=== PATIENT | male | born 1960 | race Caucasian/White ===

== ENCOUNTER 2018-09-22 16:47 | Inpatient (IN) | payer OTHER ==
[2018-09-22] MEDS ORDERED: Ondansetron PF 4 MG/2 ML Vial ONE (17:20)
[2018-09-22 17:25] LABS: #Lymphocytes 0.4 thou/uL (1.20-3.40); #Monocytes 0.5 thou/uL (0.11-0.59); #Neutrophils 13.2 thou/uL (1.40-6.50); %Basophils 0.1 % (0.0-1.0); %Eosinophils 0.3 % (0.0-10.0); %Monocytes 3.5 % (0.0-10.0); %Neutrophils 93.1 % (42.0-75.0); Mean Corpuscular HGB CONC 34.6 g/dL (32.0-36.0); Mean Corpuscular Hemoglobin 31.5 pg (27.0-31.0); Mean Corpuscular Volume 90.9 fL (78.0-98.0); Mean Platelet Volume 6.7 fL (7.4-10.4); Platelet Count 276 thou/uL (130-400); RBC Distribution Width 12.2 % (11.5-14.5); Red Blood Cell (RBC) Count 5.07 mill/uL (4.70-6.10); White Blood Cell (WBC) Count 14.1 thou/uL (4.8-10.8)
[2018-09-22 17:45] LABS: ALT (SGPT) 18 U/L (8-55); AST (SGOT) 17 U/L (5-34); Albumin 4.5 g/dL (3.5-5.0); Alkaline Phosphatase 60 U/L (40-150); Anion Gap 16 mmol/L (10-20); BUN (Urea Nitrogen) 22 mg/dL (8.4-25.7); Bilirubin, Total 0.8 mg/dL (0.2-1.2); Calc. Creatinine Clearance 0 mL/min (70-130); Calcium 9.4 mg/dL (7.8-10.44); Carbon Dioxide 22 mmol/L (22-29); Chloride 103 mmol/L (98-107); Estimated GFR-MDRD 69; Globulin 2.8 g/dL (2.4-3.5); Glucose 111 mg/dL (70-105); Lipase 24 U/L (8-78); Potassium 4.4 mmol/L (3.5-5.1); Protein, Total 7.3 g/dL (6.0-8.3); Sodium 137 mmol/L (136-145)
[2018-09-22] MEDS ORDERED: Morphine 4 MG/ML VIAL ONE ×2 (18:04→19:46)
--- NOTE | 2018-09-22 19:04 | CT ---
CT ABDOMEN AND PELVIS WITH IV CONTRAST: Date: 09/22/18 HISTORY: Generalized abdominal pain. FINDINGS: There are no previous exams for comparison. There are dependent changes in the lung bases. No calcified gallstones are seen. The liver, pancreas, spleen, adrenal glands, and right kidney are normal. There are tiny nonobstructing left renal calcul i. No calculi are seen in the ureters or the urinary bladder. No hydroureteronephrosis seen on either side. No free air, free fluid, or lymphadenopathy seen in the abdomen or pelvis. There is a circumaortic le ft renal vein. There are vascular calcifications without evidence of aneurysmal dilatation of the abdominal aorta. T here are mild degenerative changes in the spine. There is mild dilatation of small bowel loops, parti cularly in the left hemiabdomen. A normal appearing appendix is seen. There is colonic diverticulosis without diverticulitis. IMPRESSION: 1. Nonobstructing left renal calculi. 2. Colonic diverticulosis. 3. Probable small bowel obstruction. POS: DESMOND
--- NOTE | 2018-09-22 19:36 | RAD ---
PORTABLE CHEST 1 VIEW: Date: 09/22/18 Time: 1911 hours HISTORY: Diminished bowel sounds, bloating and nausea, fever. FINDINGS/IMPRESSION: The heart size is prominent. The lungs are expanded without lobar consolidation, pneumothorax, rossi pulmonary edema, or pleural effusions. Nasogastric tube is seen with tip in the stomach. POS: MZA
[2018-09-22 20:08] LABS: Bilirubin Negative (Negative); Blood, Urine Negative (Negative); Clarity Clear (Clear); Glucose, Urine (Dipstick) Normal (Negative); Leukocyte Negative Leu/uL (Negative); Nitrite Negative (Negative); Protein, Urine (Dipstick) 10 mg/dL (Neg-Trace); Urobilinogen Normal mg/dL (Less than 2)
[2018-09-22] MEDS ORDERED: Acetaminophen 325 MG TAB PO PRN (21:22)
[2018-09-22] MEDS ORDERED: Ondansetron ODT 4 MG TAB PO PRN (21:22)
[2018-09-22] MEDS ORDERED: Ondansetron PF 4 MG/2 ML Vial IVP PRN (21:22)
[2018-09-22 21:50] VITALS: BMI 28.0
[2018-09-22] MEDS ORDERED: Sodium Chloride 0.9% 10 ML ONE (22:28)
[2018-09-22] MEDS: Sodium Chloride 0.9% 1,000 ML IV SCH (22:31)
--- NOTE | 2018-09-23 02:18 | HP ---
CODE STATUS: Full code. TIME OF EVALUATION: 8:55. CHIEF COMPLAINT: Abdominal pain. PRIMARY CARE PHYSICIAN: Rosie Nino MD HISTORY OF PRESENT ILLNESS: A 58-year-old male patient with past medical history of Parkinson, high cholesterol, hypothyroidism, diverticulitis, came to the hospital after having severe abdominal pain associated with abdominal distention with no clear triggers, no alleviating factors associated with nausea and vomiting. The symptoms are present since 7:00 p.m. yesterday and getting worse around 3 a.m. The patient has an NG tube. The patient has some improvement. It is mentioned that patient has small bowel obstruction. No clear triggers. No alleviating factors. REVIEW OF SYSTEMS: All systems reviewed were negative except for the findings mentioned above. PAST MEDICAL HISTORY: As mentioned in HPI. PAST SURGICAL HISTORY: Shoulder surgery, bilateral knee and foot surgery. SOCIAL HISTORY: No alcohol. No drugs. The patient is a former tobacco user. Smokes cigarettes. The patient quit smoking in the past year. KNOWN ALLERGIES: No known drug allergies reported. MEDICATIONS: 1. Carbidopa levodopa. 2. Synthroid. 3. Motrin. PHYSICAL EXAMINATION: VITAL SIGNS: On presentation, blood pressure 127/86, heart rate 92, respiratory rate was 16, oxygen saturation was 96% on room air. GENERAL: The patient is alert and oriented, no acute distress. HEENT: Eyes, normal conjunctivae. Moist oral mucosa. Anicteric. No JVD. RESPIRATORY: Bilateral air entry. No rales. No wheezing. Symmetrical expansion. CARDIOVASCULAR: Normal rate, regular rhythm. No murmurs. No gallop. No edema. ABDOMEN: Soft, distended, improved after insertion of the NG tube with mild tenderness. MUSCULOSKELETAL: The patient has baseline strength and range of motion. Capillary refill seems to be intact. NEURO: No evidence of any new focal weakness. Cranial nerves seems to be intact. PSYCH: The patient is in good mood. No anxiety. Optimal judgment. DIAGNOSTIC DATA: Abdomen and pelvis CT was reviewed. The patient has no obstruction in left renal calculi, colon diverticulosis, and probably small bowel obstruction. Chest x-ray was reviewed. The patient has heart size prominent. The lungs are expanded without lobar consolidation, pneumothorax from pulmonary edema or pleural effusion. Nasogastric tube seems to be in deepest of the stomach. LABORATORY DATA: Labs were reviewed. The patient has white count of 14.4, hemoglobin 16, MCV 90, platelet count 276. Chemistry; sodium 137, potassium 4.4, chloride 103, carbon dioxide 22, anion gap 16, BUN 22, creatinine 1.10, GFR 69, glucose 111, calcium 9.4, total bilirubin 0.8. LFTs were negative. Urine was done and it was negative. ASSESSMENT AND PLAN: The patient will be placed in the hospital with following medical problems: 1. Small bowel obstruction, unclear etiology. The patient has improved after NG tube insertion. We will do KUB in the morning. Might need to consult GI/Surgery if needed in the morning to try to find the etiology for this presentation. 2. Hypothyroidism. Continue hormone replacement. 3. Parkinson disease and new onset. Reconcile home medications once updated. 4. Deep venous thrombosis prophylaxis. 5. Leukocytosis. White count 14. We will monitor. No evidence of any infection at this point. 6. Deep venous thrombosis prophylaxis. Job ID: [id number]
[2018-09-23 06:40] LABS: #Eosinphils 0.1 thou/uL (0.0-0.7); #Monocytes 0.6 thou/uL (0.11-0.59); %Basophils 0.2 % (0.0-1.0); %Eosinophils 0.9 % (0.0-10.0); %Lymphocytes 12.5 % (21.0-51.0); %Monocytes 7.5 % (0.0-10.0); %Neutrophils 78.9 % (42.0-75.0); Hemoglobin 13.9 g/dL (14.0-18.0); Mean Corpuscular HGB CONC 34.2 g/dL (32.0-36.0); Mean Corpuscular Hemoglobin 30.6 pg (27.0-31.0); Mean Corpuscular Volume 89.4 fL (78.0-98.0); Platelet Count 226 thou/uL (130-400); Red Blood Cell (RBC) Count 4.55 mill/uL (4.70-6.10); White Blood Cell (WBC) Count 7.6 thou/uL (4.8-10.8)
[2018-09-23 07:00] LABS: Anion Gap 11 mmol/L (10-20); BUN (Urea Nitrogen) 18 mg/dL (8.4-25.7); Calc. Creatinine Clearance 141 mL/min (70-130); Calcium 8.1 mg/dL (7.8-10.44); Carbon Dioxide 24 mmol/L (22-29); Chloride 105 mmol/L (98-107); Estimated GFR-MDRD Greater than 90; Glucose 94 mg/dL (70-105); Potassium 3.7 mmol/L (3.5-5.1); Sodium 136 mmol/L (136-145)
[2018-09-23] MEDS: Enoxaparin Sodium 40 MG/0.4 ML SYRINGE SC SCH (09:21)
--- NOTE | 2018-09-23 09:28 | RAD ---
Radiograph abdomen one view: DATE: 09/23/2018 HISTORY: 58-year-old male with small bowel obstruction. FINDINGS: Air-filled mildly dilated small bowel loops centrally located in the mid abdomen. Gas in nondilated r ight colon. No gastric distention. No signs of organomegaly. IMPRESSION: Nonspecific bowel gas pattern with several mildly dilated small bowel loops. Consider therapeutic Gastrografin small bowel series.
--- NOTE | 2018-09-23 10:13 | PRG ---
DATE OF SERVICE: 09/23/2018 SUBJECTIVE: The patient feels okay. He is not having significant amount of pain at the moment. He has been slightly improved with the NG tube. OBJECTIVE: VITAL SIGNS: Temperature 97.7, pulse 62, respirations 20, O2 saturation 96% on room air, BP is 153/81. GENERAL APPEARANCE: Age-appropriate male, in no distress. He is awake, alert, oriented, sitting up in the hospital bed. NG tube in place. HEART: Regular rate and rhythm. No murmurs, gallops, or rubs. LUNGS: Clear to auscultation bilaterally with good chest wall expansion and air exchange. ABDOMEN: Soft, maybe slightly distended. There are bowel sounds present. They are hypoactive, and there are some that are very high-pitched in nature. He has no significant tenderness, very slight tenderness to deep palpation on the right lower quadrant and left mid abdomen. EXTREMITIES: Have no cyanosis, clubbing, or edema. NEUROLOGIC: Intact. PSYCH: Normal affect and behavior. LABORATORY DATA: White count 7.6, hemoglobin 13.9, and platelets 226. BMP is normal. Urine was normal. Abdominal x-ray has not read yet. By my review, appears to have some persistent loops of dilated bowel in the central abdomen. IMPRESSION AND PLAN: 1. Possible small bowel obstruction. Discussed the case with Dr. Borden who saw the patient this morning as well. He will order a small bowel follow-through today to determine if this does truly represent obstruction. I am concerned that it in fact may given the exam and the x-ray from today. In the interim, we will continue with NG tube to low wall suction, and we will add some p.r.n. morphine since he is n.p.o. 2. Parkinson disease. Unfortunately, the patient will not likely be able to take his Parkinson's medications while he has NG tube in. He reports that his only symptom is a tremor in his right hand when he is a little more distressed or anxious. 3. Hypothyroidism. Again, the patient will not be able to take medications because of the n.p.o. status, however, should be fine for a few days. 4. History of hyperlipidemia, not currently on statin because he did not tolerate them well. No intervention indicated at this time. Job ID: [id number]
[2018-09-23] MEDS: Morphine 2 MG/ML SYRINGE SLOW IVP PRN ×3 (10:17→20:44)
[2018-09-23] MEDS ORDERED: MD-Gastroview 120 ML BOT ONE (10:43)
--- NOTE | 2018-09-23 13:40 | RAD ---
Exam: Gastrografin small bowel HISTORY: Small bowel obstruction Comparison none FINDINGS: Initial tube coremaker images demonstrate the sidehole of the nasogastric tube to be in the GE junct ion. Nasogastric tube was advanced such that the sidehole is in the gastric cardia. Patient was administered Gastrografin. Gastrografin opacifies the right hemicolon 1.5 hours IMPRESSION: No evidence of high-grade obstruction.
[2018-09-23] MEDS: Sodium Chloride 0.9% 1,000 ML IV SCH (14:31)
--- NOTE | 2018-09-23 15:07 | CON ---
DATE OF CONSULTATION: 09/23/2018 CHIEF COMPLAINT: Obstruction. HISTORY OF PRESENT ILLNESS: This is a 58-year-old male with a history of bloating, nausea, and vomiting yesterday afternoon. They were out of town, they came back. They came to the [facility] Emergency Room. Very little pain. IV fluids. The nausea improved, but still complaining of some bloating. NG tube was placed with minimal output. CT scan of the abdomen revealed possible partial small bowel obstruction. His NG tube has really not put out much overnights. He is not complaining of any pain. He has never had surgery on his abdomen before. He has had open inguinal hernia repair. No previous obstructions. PAST MEDICAL HISTORY: Includes mild Parkinson's, hypercholesteremia, hypothyroidism, and diverticulosis. PAST SURGICAL HISTORY: Shoulder, bilateral knee, and hernia. SOCIAL HISTORY: No smoking or alcohol. Former smoker. ALLERGIES: NO KNOWN DRUG ALLERGIES. MEDICATIONS: 1. Carbidopa. 2. Synthroid. 3. Motrin. REVIEW OF SYSTEMS: Ten-system review of systems is otherwise negative unless described above. PHYSICAL EXAMINATION: VITAL SIGNS: Blood pressure 153/81, pulse is 82, and respirations 20. HEENT: Sclerae are anicteric. Oropharynx is clear. NECK: No lymphadenopathy. CHEST: Clear. HEART: Regular rate and rhythm. ABDOMEN: Soft. It is distended. It is nontender. There is occasional bowel sounds. NG tube output overnight is 140. LABORATORY DATA: White blood cell count of 7, hemoglobin 13, and platelet count is 226. Sodium 136, potassium 3.7, and creatinine 0.85. Urine is clear. IMAGING DATA: CT scan shows possible partial small bowel obstruction. ASSESSMENT: 1. Partial small bowel obstruction. 2. Parkinson's. 3. Hypothyroidism. PLAN: Gastrografin small bowel follow-through today. I suspect it will be within normal limits and then we can remove the NG tube and start a liquid diet. Job ID: [id number]
[2018-09-24] MEDS: Sodium Chloride 0.9% 1,000 ML IV SCH (04:47)
[2018-09-24 08:22] VITALS: BP 142/85; TEMP 97.9
[2018-09-24] MEDS ORDERED: Carbidopa/Levodopa 25-100 mg Tablet PO SCH (09:45)
[2018-09-24] MEDS: Enoxaparin Sodium 40 MG/0.4 ML SYRINGE SC SCH (10:01)
--- NOTE | 2018-09-24 10:27 | PRG ---
DATE OF SERVICE: 09/24/2018 SUBJECTIVE: Mr. Serrano tolerating a liquid diet without difficulty. His small-bowel follow-through was negative. He is afebrile. Vital signs are stable. He is alert and oriented, in no acute distress. ASSESSMENT: Abdominal pain with dilation on initial CT of small intestine, now doing well clinically on a liquid diet. Small bowel follow-through shows normal time passage to the cecum. He has no pain. No nausea or vomiting. He is being discharged home, likely had a transient ileus of unknown origin, but it has improved now. He will follow up in my office if he has any additional complaints. Safe to discharge from my standpoint. Job ID: [id number]
--- NOTE | 2018-09-25 11:58 | DIS ---
DATE OF ADMISSION: 09/22/2018 DATE OF DISCHARGE: 09/24/2018 HISTORY OF PRESENT ILLNESS: This patient is a 58-year-old male who presented via the emergency department. He had a history of Parkinson disease which is mild and recently diagnosed as well as hypothyroidism and a history of diverticulitis. He was having severe abdominal pain with distention. He was worked up in the emergency room to include labs with a white count of 14.4. CT scan showing concern for possible partial small bowel obstruction. HOSPITAL COURSE: The patient was admitted to the hospital with possible partial small bowel obstruction. He had an NG tube placed suctioning and Surgery was consulted. After reviewing the CT scan, it was unclear as to whether the patient actually had obstruction or not. He subsequently had a small-bowel follow- through study, which revealed normal passage of contrast to the colon. The patient had several bowel movements subsequent. He was able to start on clear liquids and advance to a regular diet by the following morning, which he tolerated without any difficulties. At that time, he was felt to be stable for discharge to home with his white count being down to 7.6, and his vital signs stable. PHYSICAL EXAMINATION: VITAL SIGNS: At time of discharge, temperature is 97.9, pulse 54, respirations 20, O2 saturation 96% on room air, BP 142/85. GENERAL: He is awake, alert, oriented, pleasant, cooperative. HEART: Regular rate and rhythm without murmurs, gallops, or rubs. LUNGS: Clear bilaterally. ABDOMEN: Soft, nontender, and nondistended. EXTREMITIES: No cyanosis, clubbing, or edema. DISPOSITION: The patient is discharged to home in good condition. DIET: He is to continue with a regular diet. ACTIVITY: His activity level is as tolerated. DISCHARGE MEDICATIONS: He will be on: 1. Levothyroxine 88 mcg daily. 2. Sinemet CR one p.o. t.i.d. 3. Omeprazole 40 mg daily. 4. Ibuprofen p.r.n. FOLLOWUP: He is to follow up with Dr. Nino and he can return to the hospital should he have any problems prior to his followup. Total time spent in discharge activities, including face to face time with the patient, was 31 min. Job ID: [id number] [facility]
== END 2018-09-24 11:22 | disposition home or self-care (01) | DRG 390 ==
LOC: ERS 16:47 → 3SE 18:45
PROVIDERS: ADMIT Internal Medicine; ATTEND Internal Medicine
DX: K56.7 Ileus, unspecified (principal); E03.9 Hypothyroidism, unspecified; G20 Parkinson's disease; D72.829 Elevated white blood cell count, unspecified; E78.00 Pure hypercholesterolemia, unspecified; Z79.899 Other long term (current) drug therapy; Z87.891 Personal history of nicotine dependence; Z98.890 Other specified postprocedural states
CPT/HCPCS: 36415; 71045; 74018; 74177; 74250; 80048; 80053; 81003; 83690; 85025; 96361; 96374; 96375; 96376; J1650; J2270; J2405; Q9963

== ENCOUNTER 2023-03-01 15:55 | Outpatient (CLI) | payer BC ==
[2023-03-01 16:31] LABS: #Basophils 0.1 10x3/uL (0.0-0.2); #Eosinphils 0.2 10x3/uL (0.0-0.5); #Monocytes 0.9 10x3/uL (0.0-1.1); #Neutrophils 5.6 10x3/uL (1.5-8.4); %Basophils 0.7 % (0.0-2.0); %Eosinophils 1.9 % (0.0-6.0); %Lymphocytes 25.8 % (18.0-47.0); %Monocytes 9.6 % (0.0-10.0); %Neutrophils 61.7 % (40.0-75.0); Hematocrit 42.6 % (38.8-50.0); Hemoglobin 14.3 g/dL (13.5-17.5); Mean Corpuscular HGB CONC 33.6 g/dL (32.0-36.0); Mean Corpuscular Hemoglobin 30.1 pg (27.0-33.0); Mean Corpuscular Volume 89.7 fl (81.2-95.1); Mean Platelet Volume 9.8 fl (7.4-10.4); Platelet Count 315 10x3/uL (150-450); RBC Distribution Width 12.5 % (11.5-14.5); Red Blood Cell (RBC) Count 4.75 10x6/uL (4.32-5.72); White Blood Cell (WBC) Count 9.1 10x3/uL (3.5-10.5)
[2023-03-01 16:40] LABS: Anion Gap 12 mmol/L (10-20); BUN (Urea Nitrogen) 19 mg/dL (8.4-25.7); Calc. Creatinine Clearance 0 mL/min (70-130); Calcium 9.5 mg/dL (7.8-10.44); Carbon Dioxide 25 mmol/L (23-31); Chloride 106 mmol/L (98-107); Estimated GFR 90; Glucose 95 mg/dL (80-115); Potassium 4.1 mmol/L (3.5-5.1); Sodium 139 mmol/L (136-145)
== END 2023-03-01 15:56 | disposition home or self-care (01) ==
LOC: LABBT 15:55
PROVIDERS: ATTEND Orthopaedic Surgery
DX: Z01.818 Encounter for other preprocedural examination (principal); T14.8XXA Other injury of unspecified body region, initial encounter
CPT/HCPCS: 80048; 85025; 93005; 93010

== ENCOUNTER 2023-03-06 06:18 | Day surgery (SDC) | payer BC ==
[2023-03-01 16:09] VITALS: BMI 29.9
[2023-03-06] MEDS ORDERED: Sodium Chloride 0.9% 100 ML ONE ×2 (07:39→08:21)
[2023-03-06] MEDS ORDERED: Tranexamic Acid 1,000 MG/10 ML VIAL ONE (07:39)
[2023-03-06] MEDS ORDERED: Vancomycin (BATCH) 1.5 GM/300 ML BAG ONE (07:40)
[2023-03-06] MEDS ORDERED: Ondansetron PF 4 MG/2 ML Vial ONE (07:43)
[2023-03-06] MEDS ORDERED: Lidocaine 1% PF 5 ML VIAL ONE (07:43)
[2023-03-06] MEDS ORDERED: Dexamethasone 4 mg/ml Vial ONE (07:43)
[2023-03-06] MEDS ORDERED: Rocuronium Bromide 10 MG/ML (10ML VIAL) ONE (07:43)
[2023-03-06] MEDS ORDERED: Midazolam HCl 2 mg/2 ml Vial ONE (07:43)
[2023-03-06] MEDS ORDERED: PROPOFOL 20 ML ONE (07:43)
[2023-03-06] MEDS ORDERED: fentaNYL PF 100 MCG/2 ML SYRINGE ONE ×2 (07:43→09:13)
[2023-03-06] MEDS ORDERED: Lidocaine 1% (PF) 30 ML VIAL ONE (08:21)
[2023-03-06] MEDS ORDERED: CEFAZOLIN 2 GM VIAL ONE (08:21)
[2023-03-06] MEDS ORDERED: EPINEPHrine 1 MG/ML VIAL ONE (08:21)
[2023-03-06] MEDS ORDERED: ePHEDrine Sulfate 50 MG/10 ML VIAL ONE (09:23)
[2023-03-06] MEDS ORDERED: SUGAMMADEX SODIUM 200 MG/2 ML VIAL ONE (10:27)
[2023-03-06] MEDS ORDERED: fentaNYL 50 mcg/mL 1 mL Vial ONE ×5 (10:49→12:03)
[2023-03-06] MEDS ORDERED: HYDROcodone/Acetaminophen 5/325 mg Tablet ONE (12:36)
== END 2023-03-06 14:30 | disposition home or self-care (01) ==
LOC: SDC 06:18
PROVIDERS: ATTEND Orthopaedic Surgery
PROC: 0PSL04Z Reposition Left Ulna with Internal Fixation Device, Open Approach (ICD-10-PCS; principal; 2023-03-06)
DX: S52.022A Displaced fracture of olecranon process without intraarticular extension of left ulna, initial encounter for closed fracture (principal); S46.312A Strain of muscle, fascia and tendon of triceps, left arm, initial encounter; G20.A1 Parkinson's disease without dyskinesia, without mention of fluctuations; F17.210 Nicotine dependence, cigarettes, uncomplicated; Z88.8 Allergy status to other drugs, medicaments and biological substances; W19.XXXA Unspecified fall, initial encounter
CPT/HCPCS: C1713; J0171; J1100; J2001; J2250; J2405; J2704; J3010; J3370; J3490

== ENCOUNTER 2024-11-02 19:00 | Emergency (ER) | payer BC ==
[~2024-11-02 19:00] MED LIST: Iopamidol-370 76% 500 ML MDV (1 ML CHARGE) ONE
[2024-11-02] MEDS ORDERED: Cefepime 2 GM VIAL ONE (19:47)
[2024-11-02 20:55] LABS: ALT (SGPT) Less than 7 U/L (Less than 45); AST (SGOT) 11 U/L (11-34); Albumin 4.2 g/dL (3.1-4.5); Alkaline Phosphatase 49 U/L (40-110); Anion Gap 16 mmol/L (10-20); BUN (Urea Nitrogen) 14 mg/dL (8.4-25.7); Bilirubin, Total 0.4 mg/dL (0.3-1.2); Calc. Creatinine Clearance 0 mL/min (70-130); Calcium 9.0 mg/dL (7.8-10.44); Carbon Dioxide 25 mmol/L (23-31); Chloride 106 mmol/L (98-107); Globulin 2.7 g/dL (2.4-3.5); Glucose 91 mg/dL (80-115); Lipase 28 U/L (8-78); Potassium 3.9 mmol/L (3.5-5.1); Sodium 143 mmol/L (136-145)
[2024-11-02 21:02] LABS: #Basophils 0.07 10x3/uL (0.0-0.2); #Eosinophils 0.08 10x3/uL (0.0-0.7); #Monocytes 0.68 10x3/uL (0.11-0.59); #Neutrophils 5.36 10x3/uL (1.40-6.50); %Basophils 0.9 % (0.0-1.0); %Eosinophils 1.0 % (0.0-10.0); %Lymphocytes 20.8 % (21.0-51.0); %Monocytes 8.7 % (0.0-10.0); %Neutrophils 68.3 % (42.0-75.0); Hematocrit 40.0 % (42.0-52.0); Hemoglobin 13.2 g/dL (14.0-18.0); Mean Corpuscular Hemoglobin 29.7 pg (27.0-31.0); Mean Corpuscular Volume 89.9 fL (78.0-98.0); Platelet Count 146 10x3/uL (130-400); Red Blood Cell (RBC) Count 4.45 mill/uL (4.70-6.10); White Blood Cell (WBC) Count 7.84 10x3/uL (4.8-10.8)
[2024-11-02] MEDS ORDERED: Ondansetron PF 4 MG/2 ML Vial ONE (22:56)
== END 2024-11-03 00:10 | disposition home or self-care (01) ==
LOC: ERS 19:00
DX: R07.9 Chest pain, unspecified (principal); R10.9 Unspecified abdominal pain; E03.9 Hypothyroidism, unspecified; E05.90 Thyrotoxicosis, unspecified without thyrotoxic crisis or storm; E78.5 Hyperlipidemia, unspecified; I10 Essential (primary) hypertension; Z79.890 Hormone replacement therapy; Z87.891 Personal history of nicotine dependence; Z79.899 Other long term (current) drug therapy
CPT/HCPCS: 36415; 71045; 71275; 80053; 83690; 83880; 84484; 85025; 85379; 93005; 96374; 96375; J0692; Q9967

== ENCOUNTER 2024-11-09 17:20 | Observation (INO) | payer BC ==
[~2024-11-09 17:20] MED LIST changes: +Iopamidol 370 76% 100 ML VIAL ONE; -Iopamidol-370 76% 500 ML MDV (1 ML CHARGE) ONE
[2024-11-09] MEDS ORDERED: Nitroglycerin 0.4 MG TAB 1 EACH ONE ×3 (18:03→18:26)
[2024-11-09] MEDS ORDERED: Aspirin Chewable 81 MG TAB ONE (18:04)
[2024-11-09 18:08] LABS: #Basophils 0.06 10x3/uL (0.0-0.2); #Eosinophils 0.06 10x3/uL (0.0-0.7); #Monocytes 0.77 10x3/uL (0.11-0.59); #Neutrophils 6.51 10x3/uL (1.40-6.50); %Basophils 0.7 % (0.0-1.0); %Eosinophils 0.7 % (0.0-10.0); %Lymphocytes 14.9 % (21.0-51.0); %Monocytes 8.8 % (0.0-10.0); %Neutrophils 74.8 % (42.0-75.0); Hematocrit 42.6 % (42.0-52.0); Hemoglobin 14.0 g/dL (14.0-18.0); Mean Corpuscular Hemoglobin 28.8 pg (27.0-31.0); Mean Corpuscular Volume 87.7 fL (78.0-98.0); Platelet Count 246 10x3/uL (130-400); Red Blood Cell (RBC) Count 4.86 mill/uL (4.70-6.10); White Blood Cell (WBC) Count 8.71 10x3/uL (4.8-10.8)
[2024-11-09 18:21] LABS: ALT (SGPT) Less than 7 U/L (Less than 45); AST (SGOT) 13 U/L (11-34); Albumin 4.6 g/dL (3.1-4.5); Alkaline Phosphatase 53 U/L (40-110); Anion Gap 15 mmol/L (10-20); BUN (Urea Nitrogen) 13 mg/dL (8.4-25.7); Bilirubin, Total 0.8 mg/dL (0.3-1.2); Calc. Creatinine Clearance 0 mL/min (70-130); Calcium 9.4 mg/dL (7.8-10.44); Carbon Dioxide 22 mmol/L (23-31); Chloride 107 mmol/L (98-107); Globulin 3.0 g/dL (2.4-3.5); Glucose 102 mg/dL (80-115); Lipase 25 U/L (8-78); Potassium 4.1 mmol/L (3.5-5.1); Sodium 140 mmol/L (136-145)
[2024-11-09] MEDS ORDERED: Acetaminophen 325 MG TAB ONE (18:29)
[2024-11-09] MEDS ORDERED: Ondansetron PF 4 MG/2 ML Vial IVP PRN (21:00)
[2024-11-09] MEDS ORDERED: Senokot S 8.6-50 MG TAB PO PRN (22:34)
[2024-11-09] MEDS ORDERED: Bisacodyl 10 MG SUPP PR PRN (22:34)
[2024-11-09] MEDS ORDERED: Melatonin 3 MG TAB PO PRN (22:34)
[2024-11-09 22:53] VITALS: BMI 23.7
[2024-11-09] MEDS: Acetaminophen 325 MG TAB PO PRN (23:22)
[2024-11-09 23:35] LABS: Cardiac Risk 2.1 (Less than 4.5); Cholesterol 83.0 mg/dl (< 200 Desired); HDL Cholesterol 39.0 mg/dL (>60 Neg Risk); LDL Cholesterol, Calculated 31.0 mg/dL; Triglycerides 66.0 mg/dL (Less than 150)
[2024-11-10] MEDS: Ketorolac Tromethamine 30 MG (1 mL) VIAL IVP SCH (02:51)
[2024-11-10] MEDS: Nitroglycerin 2% Ointment 1 INCH/1 GM Packet TOP PRN (04:43)
[2024-11-10 06:05] LABS: #Basophils 0.03 10x3/uL (0.0-0.2); #Eosinophils 0.06 10x3/uL (0.0-0.7); #Monocytes 0.60 10x3/uL (0.11-0.59); #Neutrophils 5.20 10x3/uL (1.40-6.50); %Basophils 0.4 % (0.0-1.0); %Eosinophils 0.8 % (0.0-10.0); %Lymphocytes 18.2 % (21.0-51.0); %Monocytes 8.3 % (0.0-10.0); %Neutrophils 72.2 % (42.0-75.0); Hematocrit 40.1 % (42.0-52.0); Hemoglobin 13.5 g/dL (14.0-18.0); Mean Corpuscular Hemoglobin 29.6 pg (27.0-31.0); Mean Corpuscular Volume 87.9 fL (78.0-98.0); Platelet Count 232 10x3/uL (130-400); Red Blood Cell (RBC) Count 4.56 mill/uL (4.70-6.10); White Blood Cell (WBC) Count 7.21 10x3/uL (4.8-10.8)
[2024-11-10 06:22] LABS: Anion Gap 13 mmol/L (10-20); BUN (Urea Nitrogen) 12 mg/dL (8.4-25.7); Calc. Creatinine Clearance 114 mL/min (70-130); Calcium 8.8 mg/dL (7.8-10.44); Carbon Dioxide 24 mmol/L (23-31); Chloride 107 mmol/L (98-107); Glucose 95 mg/dL (80-115); Potassium 3.8 mmol/L (3.5-5.1); Sodium 140 mmol/L (136-145)
[2024-11-10] MEDS: Sertraline 25 MG TAB PO SCH (08:45)
[2024-11-10] MEDS: Enoxaparin 40 MG (0.4 mL) SYRINGE SC SCH (09:00)
[2024-11-10] MEDS ORDERED: Lidocaine 2% Viscous Solution 20 ML, Aluminum & Magnesium Hydroxide 30 ML, Donnatal Eli... SSW SCH (10:15)
[2024-11-10] MEDS ORDERED: Lidocaine 10 ML, Aluminum & Magnesium Hydroxide 30 ML SSW SCH (11:00)
[2024-11-10] MEDS: Lidocaine 20 ML, Aluminum & Magnesium Hydroxide 30 ML, Donnatal Elixir 32.4 MG SSW SCH (11:15)
[2024-11-10] MEDS ORDERED: Iopamidol 370 76% 100 ML VIAL ONE (11:19)
[2024-11-10 15:39] VITALS: BP 129/73; TEMP 97.7
[2024-11-10] MEDS ORDERED: Rosuvastatin 10 MG TAB PO SCH (21:00)
[2024-11-10] MEDS ORDERED: ALPRAZolam 0.5 MG TAB PO SCH (21:00)
[2024-11-11] MEDS ORDERED: Pantoprazole 40 MG DR.TAB PO SCH (09:00)
== END 2024-11-10 17:05 | disposition home or self-care (01) ==
LOC: ERS 17:20 → OBS 20:45
PROVIDERS: ADMIT Internal Medicine; ATTEND Hospitalist
PROC: B24BZZZ Ultrasonography of Heart with Aorta (ICD-10-PCS; principal; 2024-11-10)
DX: R07.89 Other chest pain (principal); R10.9 Unspecified abdominal pain; R63.4 Abnormal weight loss; I10 Essential (primary) hypertension; E78.5 Hyperlipidemia, unspecified; E03.9 Hypothyroidism, unspecified; F32.A Depression, unspecified; K21.9 Gastro-esophageal reflux disease without esophagitis; G20.A1 Parkinson's disease without dyskinesia, without mention of fluctuations; Z68.23 Body mass index [BMI] 23.0-23.9, adult; Z79.890 Hormone replacement therapy; Z79.899 Other long term (current) drug therapy
CPT/HCPCS: 36415; 71045; 71275; 74177; 80048; 80053; 80061; 83036; 83690; 83880; 84484; 85025; 85379; 93005; 93306; 94760; 96374; 96375; G0378; J1885; Q9967

== ENCOUNTER 2024-12-06 17:29 | Observation (INO) | payer BC ==
[2024-12-06 19:55] LABS: #Basophils 0.04 10x3/uL (0.0-0.2); #Eosinophils 0.11 10x3/uL (0.0-0.7); #Monocytes 1.02 10x3/uL (0.11-0.59); #Neutrophils 6.61 10x3/uL (1.40-6.50); %Basophils 0.4 % (0.0-1.0); %Eosinophils 1.2 % (0.0-10.0); %Lymphocytes 15.5 % (21.0-51.0); %Monocytes 11.1 % (0.0-10.0); %Neutrophils 71.6 % (42.0-75.0); Hematocrit 40.7 % (42.0-52.0); Hemoglobin 13.4 g/dL (14.0-18.0); Mean Corpuscular Hemoglobin 29.0 pg (27.0-31.0); Mean Corpuscular Volume 88.1 fL (78.0-98.0); Platelet Count 246 10x3/uL (130-400); Red Blood Cell (RBC) Count 4.62 mill/uL (4.70-6.10); White Blood Cell (WBC) Count 9.23 10x3/uL (4.8-10.8)
[2024-12-06 20:09] LABS: INR-International Normal Ratio 1.0; Prothrombin Time 13.4 sec (12.0-14.7)
[2024-12-06 20:10] LABS: PTT 27.1 sec (22.9-36.1)
[2024-12-06 20:11] LABS: ALT (SGPT) Less than 7 U/L (Less than 45); AST (SGOT) 12 U/L (11-34); Albumin 4.2 g/dL (3.1-4.5); Alkaline Phosphatase 60 U/L (40-110); Anion Gap 15 mmol/L (10-20); BUN (Urea Nitrogen) 11 mg/dL (8.4-25.7); Bilirubin, Total 0.4 mg/dL (0.3-1.2); Calc. Creatinine Clearance 0 mL/min (70-130); Calcium 9.1 mg/dL (7.8-10.44); Carbon Dioxide 28 mmol/L (23-31); Chloride 103 mmol/L (98-107); Globulin 2.9 g/dL (2.4-3.5); Glucose 85 mg/dL (80-115); Potassium 4.1 mmol/L (3.5-5.1); Sodium 142 mmol/L (136-145)
[2024-12-06 20:12] LABS: Acetaminophen Less than 10 mcg/mL (Less than 10); Salicylate Less than 8.0 mg/dL (Less than 8.0)
[2024-12-06 20:21] LABS: Bacteria/HPF None Seen HPF (None Seen); CAUTI Indications for Culture Alt mental st,lethar; Glucose, Urine (Dipstick) Normal (Negative); Leukocyte Negative Leu/uL (Negative); Protein, Urine (Dipstick) Negative (Neg-Trace); RBC/HPF 0-3 HPF (0-3); Specific Gravity, Urine 1.015 (1.002-1.036); WBC/HPF 0-3 HPF (0-3)
[2024-12-06 20:23] LABS: Urine Culture Reflex No No
[2024-12-06 23:32] VITALS: BMI 22.6
[2024-12-07] MEDS: FLU (Fluarix Triv) 25-26 (6MOS UP)/PF 45 MCG/0.5 ML Syringe IM ONE (00:11)
[2024-12-07] MEDS: Enoxaparin 40 MG (0.4 mL) SYRINGE SC SCH (08:30)
[2024-12-07 08:31] VITALS: BP 129/75; TEMP 97.5
[2024-12-07] MEDS: Sucralfate 1 GM TAB PO SCH (08:31)
[2024-12-07] MEDS: Dicyclomine 10 MG CAP PO SCH (08:31)
[2024-12-07] MEDS: Pantoprazole 40 MG DR.TAB PO SCH (08:31)
[2024-12-07] MEDS: Sertraline 100 MG TAB PO SCH (08:34)
[2024-12-07] MEDS ORDERED: Rosuvastatin 10 MG TAB PO SCH (21:00)
[2024-12-07] MEDS ORDERED: ALPRAZolam 0.5 MG TAB PO SCH (21:00)
== END 2024-12-07 11:33 | disposition home or self-care (01) ==
LOC: ERS 17:29 → T4-B 22:09
PROVIDERS: ADMIT Internal Medicine; ATTEND Internal Medicine
DX: G20.B2 Parkinson's disease with dyskinesia, with fluctuations (principal); E78.5 Hyperlipidemia, unspecified; E03.9 Hypothyroidism, unspecified; Z79.890 Hormone replacement therapy; Z79.899 Other long term (current) drug therapy
CPT/HCPCS: 70450; 71045; 80053; 80307; 81001; 84484; 85025; 85610; 85730; 93005; 94760; 96372; G0378; J1650

== ENCOUNTER 2024-12-09 22:18 | Inpatient (IN) | payer BC ==
[2024-12-09 23:02] LABS: #Basophils 0.03 10x3/uL (0.0-0.2); #Eosinophils Less than 0.03 10x3/uL (0.0-0.7); #Monocytes 0.78 10x3/uL (0.11-0.59); #Neutrophils 7.67 10x3/uL (1.40-6.50); %Basophils 0.3 % (0.0-1.0); %Eosinophils 0.2 % (0.0-10.0); %Lymphocytes 10.0 % (21.0-51.0); %Monocytes 8.2 % (0.0-10.0); %Neutrophils 81.0 % (42.0-75.0); Hematocrit 38.3 % (42.0-52.0); Hemoglobin 13.1 g/dL (14.0-18.0); Mean Corpuscular Hemoglobin 29.2 pg (27.0-31.0); Mean Corpuscular Volume 85.5 fL (78.0-98.0); Platelet Count 258 10x3/uL (130-400); Red Blood Cell (RBC) Count 4.48 mill/uL (4.70-6.10); White Blood Cell (WBC) Count 9.48 10x3/uL (4.8-10.8)
[2024-12-09 23:22] LABS: ALT (SGPT) Less than 7 U/L (Less than 45); AST (SGOT) 11 U/L (11-34); Albumin 4.0 g/dL (3.1-4.5); Alkaline Phosphatase 53 U/L (40-110); Anion Gap 16 mmol/L (10-20); BUN (Urea Nitrogen) 16 mg/dL (8.4-25.7); Bilirubin, Total 0.6 mg/dL (0.3-1.2); CK (CPK) 79 U/L (30-200); Calc. Creatinine Clearance 0 mL/min (70-130); Calcium 9.5 mg/dL (7.8-10.44); Carbon Dioxide 24 mmol/L (23-31); Chloride 101 mmol/L (98-107); Globulin 2.9 g/dL (2.4-3.5); Glucose 112 mg/dL (80-115); Magnesium 2.0 mg/dL (1.6-2.6); Potassium 3.8 mmol/L (3.5-5.1); Sodium 137 mmol/L (136-145)
[2024-12-09 23:23] LABS: Acetaminophen Less than 10 mcg/mL (Less than 10); Salicylate Less than 8.0 mg/dL (Less than 8.0)
[2024-12-10 00:09] LABS: Bacteria/HPF None Seen HPF (None Seen); CAUTI Indications for Culture Alt mental st,lethar; Glucose, Urine (Dipstick) Normal (Negative); Leukocyte Negative Leu/uL (Negative); Protein, Urine (Dipstick) Negative (Neg-Trace); RBC/HPF 0-3 HPF (0-3); Specific Gravity, Urine 1.012 (1.002-1.036); Sperm/HPF Rare HPF (None Seen); WBC/HPF 0-3 HPF (0-3)
[2024-12-10 00:10] LABS: Urine Culture Reflex No No
[2024-12-10 00:16] LABS: Cocaine Metabolite Screen Negative (Negative); THC/Cannabinoid Screen Negative (Negative); Tricyclic Screen Negative (Negative)
[2024-12-10 01:24] LABS: Actual Bicarbonate (HCO3v) 27.3 mEq/L (22-28); Base Excess 1.3 mEq/L (-2.0 to +3.0); Calcium, Ionized (venous) 1.18 mmol/L (1.16-1.32); Chloride (VBG) 100 mmol/L (98-106); Hematocrit-VBG 41 % (42.0-52.0); Hemoglobin (Hb) 13.9 g/dL (13.1-17.2); Potassium (VBG) 3.71 mmol/L (3.70-5.30); Sodium 135 mmol/L (133-146)
[2024-12-10] MEDS ORDERED: Ondansetron PF 4 MG/2 ML Vial IVP PRN ×2 (01:45→01:50)
[2024-12-10] MEDS ORDERED: Acetaminophen 325 MG TAB PO PRN ×2 (01:45→01:50)
[2024-12-10] MEDS ORDERED: hydrALAZINE 20 MG/ML VIAL SLOW IVP PRN (01:50)
[2024-12-10] MEDS ORDERED: Calcium Carbonate 500 MG ChewTAB PO PRN (01:50)
[2024-12-10] MEDS ORDERED: Aspirin Chewable 81 MG TAB ONE (02:09)
[2024-12-10 03:09] VITALS: BMI 24.2
[2024-12-10 06:11] LABS: #Basophils 0.04 10x3/uL (0.0-0.2); #Eosinophils 0.03 10x3/uL (0.0-0.7); #Monocytes 1.23 10x3/uL (0.11-0.59); #Neutrophils 9.50 10x3/uL (1.40-6.50); %Basophils 0.3 % (0.0-1.0); %Eosinophils 0.2 % (0.0-10.0); %Lymphocytes 12.4 % (21.0-51.0); %Monocytes 9.9 % (0.0-10.0); %Neutrophils 76.8 % (42.0-75.0); Hematocrit 37.7 % (42.0-52.0); Hemoglobin 12.5 g/dL (14.0-18.0); Mean Corpuscular Hemoglobin 29.0 pg (27.0-31.0); Mean Corpuscular Volume 87.5 fL (78.0-98.0); Platelet Count 234 10x3/uL (130-400); Red Blood Cell (RBC) Count 4.31 mill/uL (4.70-6.10); White Blood Cell (WBC) Count 12.39 10x3/uL (4.8-10.8)
[2024-12-10 06:35] LABS: ALT (SGPT) Less than 7 U/L (Less than 45); AST (SGOT) 11 U/L (11-34); Albumin 3.6 g/dL (3.1-4.5); Alkaline Phosphatase 52 U/L (40-110); Anion Gap 14 mmol/L (10-20); BUN (Urea Nitrogen) 14 mg/dL (8.4-25.7); Bilirubin, Total 0.7 mg/dL (0.3-1.2); Calc. Creatinine Clearance 112 mL/min (70-130); Calcium 9.0 mg/dL (7.8-10.44); Carbon Dioxide 26 mmol/L (23-31); Cardiac Risk 2.9 (Less than 4.5); Chloride 105 mmol/L (98-107); Cholesterol 86 mg/dl (< 200 Desired); Globulin 2.8 g/dL (2.4-3.5); Glucose 94 mg/dL (80-115); HDL Cholesterol 30 mg/dL (>60 Neg Risk); LDL Cholesterol, Calculated 44 mg/dL; Potassium 3.9 mmol/L (3.5-5.1); Sodium 141 mmol/L (136-145); Triglycerides 59 mg/dL (Less than 150)
[2024-12-10] MEDS: Sertraline 100 MG TAB PO SCH (08:53)
[2024-12-10] MEDS: Aspirin 81 mg Enteric Coated Tablet PO SCH (08:53)
[2024-12-10] MEDS ORDERED: (Pimavanserin Tartrate [Nuplazid] 34 MG Capsule) PO SCH (09:00)
[2024-12-10] MEDS: levETIRAcetam 500 MG TAB PO SCH (17:29)
[2024-12-10] MEDS: ALPRAZolam 0.5 MG TAB PO PRN (17:38)
[2024-12-10] MEDS: Senokot S 8.6-50 MG TAB PO PRN (17:38)
[2024-12-10] MEDS: Rosuvastatin 10 MG TAB PO SCH (21:05)
[2024-12-11 04:19] LABS: #Basophils 0.05 10x3/uL (0.0-0.2); #Eosinophils 0.09 10x3/uL (0.0-0.7); #Monocytes 1.05 10x3/uL (0.11-0.59); #Neutrophils 5.66 10x3/uL (1.40-6.50); %Basophils 0.6 % (0.0-1.0); %Eosinophils 1.0 % (0.0-10.0); %Lymphocytes 20.7 % (21.0-51.0); %Monocytes 12.1 % (0.0-10.0); %Neutrophils 65.4 % (42.0-75.0); Hematocrit 37.5 % (42.0-52.0); Hemoglobin 12.1 g/dL (14.0-18.0); Mean Corpuscular Hemoglobin 28.9 pg (27.0-31.0); Mean Corpuscular Volume 89.7 fL (78.0-98.0); Platelet Count 241 10x3/uL (130-400); Red Blood Cell (RBC) Count 4.18 mill/uL (4.70-6.10); White Blood Cell (WBC) Count 8.66 10x3/uL (4.8-10.8)
[2024-12-11] MEDS: Pantoprazole 40 MG DR.TAB PO SCH (08:55)
[2024-12-11 09:27] VITALS: BMI 24.2
[2024-12-11 11:33] VITALS: TEMP 97.9
[2024-12-11] MEDS: Bisacodyl 10 MG SUPP PR SCH (13:14)
[2024-12-11 14:52] VITALS: BP 119/69
== END 2024-12-11 15:30 | disposition short-term general hospital (02) | DRG 55 ==
LOC: ERS 22:18 → 2NO 12-10 01:23 → OBSVTOIN 12-10 14:11
PROVIDERS: ADMIT Internal Medicine; ATTEND Family Medicine
PROC: XX20X89 Monitoring of Brain Electrical Activity, Computer-aided Detection and Notification, New Technology Group 9 (ICD-10-PCS; principal; 2024-12-10)
DX: D49.6 Neoplasm of unspecified behavior of brain (principal); E87.20 Acidosis, unspecified; G20.A1 Parkinson's disease without dyskinesia, without mention of fluctuations; F02.80 Dementia in other diseases classified elsewhere, unspecified severity, without behavioral disturbance, psychotic disturbance, mood disturbance, and anxiety; E03.9 Hypothyroidism, unspecified; I95.1 Orthostatic hypotension; R56.9 Unspecified convulsions; Z98.890 Other specified postprocedural states; E78.00 Pure hypercholesterolemia, unspecified; Z87.19 Personal history of other diseases of the digestive system; Z96.653 Presence of artificial knee joint, bilateral; Z87.891 Personal history of nicotine dependence; Z79.899 Other long term (current) drug therapy; Z79.890 Hormone replacement therapy
CPT/HCPCS: 36415; 70450; 70551; 70552; 71045; 76376; 80053; 80061; 80306; 80307; 81001; 82550; 82805; 83036; 83605; 83735; 84146; 84443; 84484; 85025; 93005; 95819; 96360; 96361